=== PATIENT | male | born 1980 | race Caucasian/White ===

== ENCOUNTER 2022-07-23 17:33 | Observation (INO) | payer BC, OTHER ==
[~2022-07-23] VITALS: Ht 177.8 cm; Wt 66.5 kg
[~2022-07-23 17:33] MED LIST: CIPR-225 PO; KETO10TA PO; ONDA4TAB11 SL; ONDA4TAB8 PO; PROM25SU43 RC; TMSL.4C PO
[2022-07-23] MEDS ORDERED: fentaNYL INJ 100 MCG/2 ML AMP IVP STA (18:33)
[2022-07-23] MEDS ORDERED: KETOROLAC 30 MG/ML VIAL IVP STA (18:42)
[2022-07-23] MEDS ORDERED: NS IV 1000 ML 1,000 ML IV ONE (18:45)
--- NOTE | 2022-07-23 18:51 | ED EENT ---
History of Present Illness General Chief Complaint: Dental Problems/Pain Stated Complaint: WISDOM TEETH INFECTED Nursing Triage Note: PT AMB TO TRIAGE W C/O INFECTED WISOM TEETH X4 THAT HAS BEEN ONGOING FOR MONTHS, WORSE SX SUNDAY. PT HAD REFERRAL TO GET THEM REMOVED BUT THEY BECAME INFECTED, DELAYING THE PROCEDURE. PT HAS BEEN UNABLE TO GET INTO [facility]. PT A&OX4. Source: patient Exam Limitations: no limitations History of Present Illness Date Seen by Provider: Jul 23, 2022 Time Seen by Provider: 18:15 Initial Comments Here with problems with wisdom tooth x4 but has had significantly increased pain and swelling to the left lower wisdom tooth and now is unable to open his mouth due to pain. He had the same problem a few months ago and was on antibiotics. He was due to follow-up with dentist to have this pulled has had ongoing infection delaying the procedure. He follows with [facility]. He started taking some amoxicillin that his friends had a few days ago but the pain and swelling are worse. Denies nausea or vomiting but he is spitting out what looks to be purulent fluid. Denies breathing problems. He states he has not been able to eat or drink anything due to the pain. He does arrive tachycardic. Complains of fullness to the left upper neck area. Complains of difficulty with swallowing due to swelling.. He did take 8 baby aspirin and that did not help the pain. Timing/Duration: gradual, other (2 months but markedly worse over the last several days) Severity: moderate, severe Location: mouth, throat, facial, dental Prearrival Treatment: prescription meds Associated Symptoms: No cough, No drooling, No ear drainage; facial pain/swelling, poor fluid intake, poor solids intake, sore throat, tooth pain Allergies and Home Medications Allergies Coded Allergies: No Known Drug Allergies (Unverified , 12/06/15) Patient Home Medication List Home Medication List Reviewed: Yes Ondansetron (Ondansetron Odt) 4 Mg Tab.rapdis, 4 MG SL A PRN for NAUSEA/VOM ITING, (Reported) Entered as Reported by: LEI RUSSELL on 12/06/15 1802 Promethazine HCl (Phenergan) 25 Mg Supp.rect, 25 MG RC Q4H Prescribed by: MARIANO EMERSON on 12/07/15 0016 Review of Systems Review of Systems Constitutional: see HPI; No chills; fever Ears: Denies Pain, Denies Purulent Discharge Nose: denies pain, denies clear discharge Mouth: pain, swelling, purulent discharge Throat: pain, swelling Respiratory: No cough, No short of breath Cardiovascular: No edema, No palpitations Gastrointestinal: nausea; No vomiting Musculoskeletal: no symptoms reported Skin: no symptoms reported All Other Systems Reviewed Negative Unless Noted: Yes Past Unektwq-Lbxvwf-Zivmvk Hx Patient Social History Tobacco Use?: Yes Tobacco type used: Cigarettes Smoking Status: Current Everyday Smoker Use of E-Cig and/or Vaping dev: Yes E-Cig or Vaping type used: Nicotine Substance use?: Yes Substance type: Marijuana Alcohol Use?: No Immunizations Up To Date Influenza Vaccine Up-to-Date: No; Not Current First/Initial COVID19 Vaccinat: NONE Second COVID19 Vaccination Troy: NONE Third COVID19 Vaccination Date: NONE COVID19 Vaccine Digital Imaging Technician: NONE Past Medical History Surgeries: Yes Abdominal Respiratory: No Cardiac: No Neurological: No Reproductive Disorders: No Sexually Transmitted Disease: No Family Medical History Reviewed Nursing Family Hx No Pertinent Family Hx Physical Exam Vital Signs Vital Signs - First Documented 07/23/22 17:43 Temp 37.6 Pulse 140 Resp 20 B/P (MAP) 122/91 (101) Pulse Ox 97 O2 Delivery Room Air Height, Weight, BMI Height: 5'9" Weight: 146lbs. oz. [id number]; 21.00 BMI Method:Stated General Appearance: WD/WN, moderate distress Eyes: bilateral eye normal inspection, bilateral eye PERRL, bilateral eye EOMI Nose: normal inspection; No discharge Mouth/Throat: dental tenderness, mandibular swelling (Left-sided), trismus, other (Difficulty with opening mouth. Tongue depressor exam shows some purulence to the left lower with swelling and moderate tenderness. He is swollen at the left mandible externally with some fullness on the left submandibular with lymph nodes present.) Neck: supple; No lymphadenopathy (R); lymphadenopathy (L) Cardiovascular: no murmur, tachycardia Respiratory: lungs clear, normal breath sounds Gastrointestinal: non tender, soft Neurologic/Psychiatric: alert, oriented x 3 Skin: normal color, warm/dry Progress/Results/Core Measures Results/Orders Lab Results Laboratory Tests Test 07/23/22 19:15 Range/Units White Blood Count 16.2 H 4.3-11.0 10^3/uL Red Blood Count 4.42 4.30-5.52 10^6/uL Hemoglobin 14.4 13.3-17.7 g/dL Hematocrit 41 40-54 % Mean Corpuscular Volume 94 80-99 fL Mean Corpuscular Hemoglobin 33 25-34 pg Mean Corpuscular Hemoglobin Concent 35 32-36 g/dL Red Cell Distribution Width 11.8 10.0-14.5 % Platelet Count 409 H 130-400 10^3/uL Mean Platelet Volume 9.6 9.0-12.2 fL Immature Granulocyte % (Auto) 0 % Neutrophils (%) (Auto) 78 H 42-75 % Lymphocytes (%) (Auto) 12 12-44 % Monocytes (%) (Auto) 9 0-12 % Eosinophils (%) (Auto) 0 0-10 % Basophils (%) (Auto) 0 0-10 % Neutrophils # (Auto) 12.6 H 1.8-7.8 10^3/uL Lymphocytes # (Auto) 1.9 1.0-4.0 10^3/uL Monocytes # (Auto) 1.5 H 0.0-1.0 10^3/uL Eosinophils # (Auto) 0.0 0.0-0.3 10^3/uL Basophils # (Auto) 0.1 0.0-0.1 10^3/uL Immature Granulocyte # (Auto) 0.1 0.0-0.1 10^3/uL Neutrophils % (Manual) 78 % Lymphocytes % (Manual) 14 % Monocytes % (Manual) 7 % Metamyelocytes % 1 % Blood Morphology Comment NORMAL Sodium Level 135 135-145 MMOL/L Potassium Level 4.2 3.6-5.0 MMOL/L Chloride Level 97 L 98-107 MMOL/L Carbon Dioxide Level 19 L 21-32 MMOL/L Anion Gap 19 H 5-14 MMOL/L Blood Urea Nitrogen 11 7-18 MG/DL Creatinine 1.04 0.60-1.30 MG/DL Estimat Glomerular Filtration Rate 91 BUN/Creatinine Ratio 11 Glucose Level 96 70-105 MG/DL Lactic Acid Level 0.89 0.50-2.00 MMOL/L Calcium Level 10.4 H 8.5-10.1 MG/DL Corrected Calcium 8.5-10.1 MG/DL Total Bilirubin 0.5 0.1-1.0 MG/DL Aspartate Amino Transf (AST/SGOT) 15 5-34 U/L Alanine Aminotransferase (ALT/SGPT) 12 0-55 U/L Alkaline Phosphatase 102 40-136 U/L C-Reactive Protein High Sensitivity 18.24 H 0.00-0.50 MG/DL Total Protein 8.6 H 6.4-8.2 GM/DL Albumin 4.6 H 3.2-4.5 GM/DL My Orders Orders - FAROOQ CURTIS MD Cbc With Automated Diff (07/23/22 18:33) Comprehensive Metabolic Panel (07/23/22 18:33) Hs C Reactive Protein (07/23/22 18:33) Lactic Acid Analyzer (07/23/22 18:33) Blood Culture (07/23/22 18:33) Ed Iv/Invasive Line Start (07/23/22 18:33) Ns Iv 1000 Ml (Sodium Chloride 0.9%) (07/23/22 18:45) Fentanyl Inj (Sublimaze Injection) (07/23/22 18:33) Ketorolac Injection (Toradol Injection) (07/23/22 18:42) Ct Neck (Soft Tissue) W (07/23/22 18:43) Iohexol Injection (Omnipaque 350 Mg/Ml 1 (07/23/22 19:15) Received Contrast (Hold Metformin- Contr (07/23/22 19:15) Sodium Chloride Flush (Catheter Flush Sy (07/23/22 19:15) Manual Differential (07/23/22 19:15) Ampicillin/Sulbactam Injection (Unasyn 3 (07/23/22 20:45) Medications Given in ED Current Medications Medications Dose Ordered Sig/[place] Route Start Time Stop Time Status Last Admin Dose Admin Iohexol 100 ml ONCE ONCE IV 07/23/22 19:15 07/23/22 19:16 DC 07/23/22 19:03 75 ML Sodium Chloride 1,000 ml @ 0 mls/hr Q0M ONCE IV 07/23/22 18:45 07/23/22 18:46 DC 07/23/22 19:38 999 MLS/HR Vital Signs/I&O 07/23/22 17:43 Temp 37.6 Pulse 140 Resp 20 B/P (MAP) 122/91 (101) Pulse Ox 97 O2 Delivery Room Air Blood Pressure Mean: 101 Progress Progress Note : Progress Note Seen and evaluated. IV, labs, blood culture, normal saline 1 L bolus, fentanyl 75 mcg IV and Toradol 30 mg IV ordered. We will get CT soft tissue of the neck to rule out significant abscess involving the airway especially with his difficulty with mouth opening and report of difficulty with swallowing due to swelling. All of this was discussed with patient and family who agree. Monitor patient. 2034: CT does show small apical abscess. This is near the wisdom tooth but there is no airway compromise. Patient feels better after meds earlier. We will go ahead and initiate Unasyn 3 g IV now continue that every 6. I did discuss the case with Dr. Schwarz and he accepts patient for admission, observation status due to dehydration and difficulty with tolerating p.o. due to pain. We will continue Toradol and fentanyl if needed. This was discussed with patient and family who agree. Anticipation is he could follow-up outpatient with a dentist after infection is controlled better and he has better movement with his jaw. Patient and family agree with plan. Diagnostic Imaging Diagonstic Imaging: CT Plain Films/CT/US/NM/MRI: other Comments [facility]. [place], [place] NAME: CHARLENE KAY [facility] REC#: [id number] PT STATUS: REG ER : 1980 PHYSICIAN: FAROOQ CURTIS MD ADMIT DATE: 07/23/22/ER Draft Date of Exam:07/23/22 CT NECK (SOFT TISSUE) W PROCEDURE: CT neck soft tissue with contrast. TECHNIQUE: Multiple contiguous axial images were obtained through the neck after the administration of contrast. Auto Exposure Controls were utilized during the CT exam to meet ALARA standards for radiation dose reduction. INDICATION: Dental infection. FINDINGS: There is edema and inflammation in the left submandibular region with an approximately 1.8 x 1.2 cm irregular collection of fluid medial to the left mandibular ramus. There is periapical lucency involving the adjacent molar which does appear to extend through the medial mandibular cortex. There is no significant extension into the neck. Occasional probable reactive lymph nodes are seen along the left jugulodigastric chain measuring up to approximately 1.1 cm in size. No great vessel abnormality is identified. Parotid salivary glands and submandibular salivary glands are unremarkable although left submandibular salivary glands inseparable from the abscess. IMPRESSION: Left submandibular abscess adjacent to dental lesion without airway encroachment or other acute complication. Dictated on workstation # [id number] Dict: 07/23/221930 Trans: 07/23/221940 [id number] Interpreted by: ISABELLA HURTADO MD Electronically signed by: Departure Communication (Admissions) Time/Spoke to Admitting Phy: 20:35 Impression Primary Impression: Dental abscess Additional Impressions: Dehydration Mouth pain Disposition: ADMITTED INPATIENT Condition: Stable Admissions Decision to Admit Reason: Admit from ER (General) Decision to Admit/Date: Jul 23, 2022 Time/Decision to Admit Time: 20:35 Departure-Patient Inst. Referrals: [facility] (PCP/Family) Primary Care Physician FAROOQ CURTIS MD Jul 23, 2022 18:51
[2022-07-23] MEDS ORDERED: CATHETER FLUSH 10 ML SYR IV PRN (19:15)
[2022-07-23] MEDS ORDERED: IOHEXOL 350 MG/ML 100 ML (OMNIPAQUE 350) VIAL IV ONE (19:15)
[2022-07-23] MEDS ORDERED: HOLD METFORMIN - RECEIVED CONTRAST 20 ML VIAL IV SCH (19:15)
[2022-07-23 19:22] LABS: BASOPHILS # (AUTO) 0.1 10^3/uL (0.0-0.1); BASOPHILS % (AUTO) 0 % (0-10); EOSINOPHILS % (AUTO) 0 % (0-10); HEMATOCRIT 41 % (40-54); HEMOGLOBIN 14.4 g/dL (13.3-17.7); LYMPHOCYTES # (AUTO) 1.9 10^3/uL (1.0-4.0); LYMPHOCYTES % (AUTO) 12 % (12-44); MEAN CORPUSCULAR HEMOGLOBIN 33 pg (25-34); MEAN CORPUSCULAR HGB CONC 35 g/dL (32-36); MEAN CORPUSCULAR VOLUME 94 fL (80-99); MEAN PLATELET VOLUME 9.6 fL (9.0-12.2); MONOCYTES # (AUTO) 1.5 10^3/uL (0.0-1.0); MONOCYTES % (AUTO) 9 % (0-12); NEUTROPHILS # (AUTO) 12.6 10^3/uL (1.8-7.8); NEUTROPHILS % (AUTO) 78 % (42-75); PLATELET COUNT 409 10^3/uL (130-400); WHITE BLOOD COUNT 16.2 10^3/uL (4.3-11.0)
--- NOTE | 2022-07-23 19:42 | Diagnostic Imaging Report ---
PROCEDURE: CT neck soft tissue with contrast. TECHNIQUE: Multiple contiguous axial images were obtained through the neck after the administration of contrast. Auto Exposure Controls were utilized during the CT exam to meet ALARA standards for radiation dose reduction. INDICATION: Dental infection. FINDINGS: There is edema and inflammation in the left submandibular region with an approximately 1.8 x 1.2 cm irregular collection of fluid medial to the left mandibular ramus. There is periapical lucency involving the adjacent molar which does appear to extend through the medial mandibular cortex. There is no significant extension into the neck. Occasional probable reactive lymph nodes are seen along the left jugulodigastric chain measuring up to approximately 1.1 cm in size. No great vessel abnormality is identified. Parotid salivary glands and submandibular salivary glands are unremarkable although left submandibular salivary glands inseparable from the abscess. IMPRESSION: Left submandibular abscess adjacent to dental lesion without airway encroachment or other acute complication. Dictated by: Dictated on workstation # [id number]
[2022-07-23 19:47] LABS: NEUTROPHILS % (MANUAL) 78 %
[2022-07-23 19:48] LABS: LYMPHOCYTES % (MANUAL) 14 %; METAMYELOCYTES % 1 %; MONOCYTES % (MANUAL) 7 %
[2022-07-23 19:49] LABS: RBC MORPH NORMAL
[2022-07-23 19:51] LABS: ALANINE AMINOTRANSFERASE 12 U/L (0-55); ALBUMIN 4.6 GM/DL (3.2-4.5); ALKALINE PHOSPHATASE 102 U/L (40-136); BILIRUBIN,TOTAL 0.5 MG/DL (0.1-1.0); BUN/CREATININE RATIO 11; CALCIUM 10.4 MG/DL (8.5-10.1); CARBON DIOXIDE 19 MMOL/L (21-32); CHLORIDE 97 MMOL/L (98-107); CREATININE SERUM 1.04 MG/DL (0.60-1.30); GFR ESTIMATED 91; GLUCOSE 96 MG/DL (70-105); POTASSIUM 4.2 MMOL/L (3.6-5.0); SODIUM 135 MMOL/L (135-145); TOTAL PROTEIN 8.6 GM/DL (6.4-8.2)
[2022-07-23] MEDS ORDERED: cefTRIAXone 1 GM PRE-MIX 50 ML IV STA (20:33)
[2022-07-23] MEDS ORDERED: AMPICILLIN/SULBACTAM INJECTION 3 GM in NS (IVPB) 100 ML IV ONE (20:45)
[2022-07-23 21:30] VITALS: BP 132/76
[2022-07-23] MEDS ORDERED: LACTATED RINGERS 1,000 ML IV ONE (21:33)
[2022-07-23] MEDS: LACTATED RINGERS 1,000 ML IV SCH (21:35)
[2022-07-23] MEDS ORDERED: ONDANSETRON 4 MG/2 ML (SDV) Z0FRAN IV PRN (22:15)
[2022-07-23] MEDS ORDERED: fentaNYL INJ 100 MCG/2 ML AMP IV PRN (22:15)
[2022-07-23] MEDS ORDERED: AMPICILLIN/SULBACTAM 3 GM/NS 100 ML IVPB IV SCH ×2 (22:30)
[2022-07-23 23:48] VITALS: BP 115/69
[2022-07-24] MEDS: AMPICILLIN/SULBACTAM 3 GM/NS 100 ML IVPB IV SCH ×8 (03:13→21:10)
[2022-07-24 03:14] VITALS: BP 105/57
[2022-07-24] MEDS: LACTATED RINGERS 1,000 ML IV SCH ×3 (05:29→23:40)
[2022-07-24 05:31] LABS: BASOPHILS # (AUTO) 0.1 10^3/uL (0.0-0.1); BASOPHILS % (AUTO) 1 % (0-10); EOSINOPHILS # (AUTO) 0.1 10^3/uL (0.0-0.3); EOSINOPHILS % (AUTO) 2 % (0-10); HEMATOCRIT 35 % (40-54); LYMPHOCYTES # (AUTO) 2.1 10^3/uL (1.0-4.0); LYMPHOCYTES % (AUTO) 28 % (12-44); MEAN CORPUSCULAR HEMOGLOBIN 33 pg (25-34); MEAN CORPUSCULAR HGB CONC 34 g/dL (32-36); MEAN CORPUSCULAR VOLUME 95 fL (80-99); MEAN PLATELET VOLUME 9.5 fL (9.0-12.2); MONOCYTES # (AUTO) 0.9 10^3/uL (0.0-1.0); MONOCYTES % (AUTO) 12 % (0-12); NEUTROPHILS # (AUTO) 4.2 10^3/uL (1.8-7.8); NEUTROPHILS % (AUTO) 57 % (42-75); PLATELET COUNT 332 10^3/uL (130-400); WHITE BLOOD COUNT 7.4 10^3/uL (4.3-11.0)
[2022-07-24 05:47] LABS: CALCIUM 9.4 MG/DL (8.5-10.1); CREATININE SERUM 0.81 MG/DL (0.60-1.30); POTASSIUM 4.3 MMOL/L (3.6-5.0)
[2022-07-24 07:12] VITALS: BP 109/73
[2022-07-24] MEDS: KETOROLAC 30 MG/ML VIAL IV PRN ×3 (08:13→23:40)
[2022-07-24 11:25] VITALS: BP 111/69
--- NOTE | 2022-07-24 14:57 | History & Physical ---
SOLO RHODES 07/24/22 1457: HPI History of Present Illness: Farhat Guan is a 42 yo male who was admitted to inpatient care on 07/23/2022 for dental abscess. The patient reports he has experienced around 4 months of left lower jaw pain. He was seen by dentistry and diagnosed with left lower wisdom tooth cavity with submandibular abscess, prescribed antibiotics and referred to oral surgery at the time. The patient states his symptoms improved with oral antibiotics, but he had recurrence of the pain and swelling just prior to his oral surgery consult, and when he called them with these symptoms, he was informed he could not have surgery performed with an active infection. Patient did not have his appointment rescheduled, and he did not start antibiotics or any other treatment for his abscess at the time. He presented the ED for months of worsening pain to his left lower jaw, decreased jaw mobility, and difficulty eating and drinking secondary to his pain. The patient was started on Unasyn, fluids, and analgesics prior to admission. Today, the patient states his symptoms have largely improved compared to yesterday. He indicates his pain was an 8.5/10 on initial presentation and is a 6/10 now; he remarks he is able to open his mouth wider than previously and has been able to drink a Sprite this morning. He notes his difficulty opening his jaw is because it feels "locked" in place, and not necessarily secondary to his left jaw pain. Patient had CBC drawn at 1915 yesterday, notable for elevated WBC, PLT, Neutrophil%, Neutrophil Count, Monocyte Count at 16.2 (H), 409 (H), 78 (H), 12.6 (H), 1.5 (H), respectively, improved to 7.4, 320, 57, 4.2, 0.9 on redraw at 0519 this morning; he had RBC, HGB, HCT within normal limits yesterday but these are all low at 3.67, 12.0, and 35 today. CMP revealed Chloride 97 (L), CO2 19 (L), Anion Gap 19 (H), Calcium 10.4 (H) yesterday, all improved with levels of 103, 23, 15 (H), 9.4 at 0519 this morning. Patient did not have temperature at or above 38 C through the night. He had one episode of tachycardia recorded at 140 at 2131. His VS have otherwise been WNL. Source: patient, old records Date seen by provider: Jul 24, 2022 Time Seen by Provider: 08:45 Attending Physician [place] PCP Admitting Physician: Delio Schwarz MD Attending Physician: Marv Jones MD Consult Date of Admission Jul 23, 2022 at 20:35 Home Medications Home Medications Reviewed patient Home Medication Reconciliation performed by pharmacy medication reconciliations oil field technician and/or nursing. Patients Allergies have been reviewed. Allergies Coded Allergies: No Known Drug Allergies (Unverified , 12/06/15) DLJ-Rrftvi-Awepmn Hx Patient Social History Smoking Status: Current Everyday Smoker Alcohol Use?: No Substance type: Marijuana Tobacco type used: Cigarettes Have you traveled recently?: No Immunizations Up To Date Influenza Vaccine Up-to-Date: No; Not Current First/Initial COVID19 Vaccinat: NONE Second COVID19 Vaccination Troy: NONE Third COVID19 Vaccination Date: NONE COVID19 Vaccine Analyst Market Intelligence: NONE Family Medical History Significant Family History: No Pertinent Family Hx Review of Systems ([facility]) Constitutional: No chills, No fever EENTM: dental problems, mouth swelling, other (difficulty opening his mouth) Respiratory: no symptoms reported; No short of breath Cardiovascular: no symptoms reported; No chest pain Gastrointestinal: no symptoms reported; No abdominal pain Reviewed Test Results Reviewed Test Results Lab Laboratory Tests 07/23/22 19:15: White Blood Count 16.2H, Platelet Count 409H, Neutrophils (%) (Auto) 78H, Neutrophils # (Auto) 12.6H, Monocytes # (Auto) 1.5H, Chloride Level 97L, Carbon Dioxide Level 19L, Anion Gap 19H, Calcium Level 10.4H, C-Reactive Protein High Sensitivity 18.24H, Total Protein 8.6H, Albumin 4.6H 07/24/22 05:19: Anion Gap 15H, Red Blood Count 3.67L, Hemoglobin 12.0L, Hematocrit 35L Radiology Left submandibular abscess adjacent to dental lesion without airway encroachment or other acute complication. Physical Exam-([facility]) Physical Exam Vital Signs VS - Last 72 Hours, by Label 07/23/22 07/23/22 07/23/22 07/23/22 17:43 21:30 21:30 21:31 Temp 37.6 36.4 37.6 Pulse 140 89 140 Resp 20 18 20 B/P (MAP) 122/91 (101) 132/76 (94) 122/91 Pulse Ox 97 97 97 O2 Delivery Room Air Room Air Room Air Room Air 07/23/22 07/24/22 07/24/22 07/24/22 23:48 03:14 07:12 11:25 Temp 37.1 36.7 36.3 36.4 Pulse 77 72 72 68 Resp 16 16 18 18 B/P (MAP) 115/69 (84) 105/57 (73) 109/73 (85) 111/69 (83) Pulse Ox 99 98 96 99 O2 Delivery Room Air Room Air Room Air Room Air Capillary Refill : Less Than 3 Seconds General Appearance: no apparent distress HEENT: other (Patient only able to open his mouth 1.5-2cm, difficulty visualizing the oral cavity. Dental cavity and tooth decay notable to the left lower wisdom tooth. No surrounding erythema or swelling.) Neck: lymphadenopathy (L) (mild left lymphadenopathy), other (tenderness to palpation of the left mandibular process and the neck just inferior to it. Notable soft tissue swelling to the area inferior to the left mandibular process.) Respiratory: lungs clear, normal breath sounds, no respiratory distress Cardiovascular: normal peripheral pulses, regular rate, rhythm, no edema Peripheral Pulses: 2+ Dorsalis Pedis (R), 2+ Left Dors-Pedis (L), 2+ Radial Pulses (R), 2+ Radial Pulses (L) Assessment/Plan Assessment/Plan Admission Status: Inpatient Order (span 2 midnights) Reason for Inpatient Admission: Submandibular abscess (1) Dental abscess Status: Acute Assessment & Plan: Continue Unasyn infusion, pain management with analgesics as needed, fluid infusion. Consult with oral surgery tomorrow morning. Plan to discharge with their agreement and if patient is able to tolerate fluids, food, and medications PO. (2) Mouth pain Status: Acute Assessment & Plan: Continue Unasyn infusion, pain management with analgesics as needed, fluid infusion. Consult with oral surgery tomorrow morning. Plan to discharge with their agreement and if patient is able to tolerate fluids, food, and medications PO. MARV JONES MD 07/24/22 1533: Home Medications Allergies Coded Allergies: No Known Drug Allergies (Unverified , 12/06/15) Supervisory-Addendum Brief Verification & Attestation Participated in pt care: history, MDM, physical Personally performed: exam, history, MDM, supervision of care Care discussed with: Medical Student Procedures: n/a I personally saw and examined patient and repeated the history to confirm that documented by the medical student. I directed the plan of care as documented. SOLO RHODES Jul 24, 2022 14:57 MARV JONES MD Jul 24, 2022 15:33
[2022-07-24 15:28] VITALS: BP 113/74
[2022-07-24 19:26] VITALS: BP 109/76
[2022-07-24 23:54] VITALS: BP 110/60
[2022-07-25] MEDS: AMPICILLIN/SULBACTAM 3 GM/NS 100 ML IVPB IV SCH ×4 (03:13→08:23)
[2022-07-25 03:53] VITALS: BP 114/71
[2022-07-25] MEDS: LACTATED RINGERS 1,000 ML IV SCH (06:56)
[2022-07-25 07:28] VITALS: BP 125/79
[2022-07-25] MEDS ORDERED: AMOX1TAB12 PO (09:19)
--- NOTE | 2022-07-25 09:21 | Discharge Summary ---
Discharge Summary Hospital Course Problems/Diagnosis: (1) Dental abscess Status: Acute Assessment & Plan: Continue Unasyn infusion, pain management with analgesics as needed, fluid infusion. Consult with oral surgery tomorrow morning. Plan to discharge with their agreement and if patient is able to tolerate fluids, food, and medications PO. (2) Mouth pain Status: Acute Assessment & Plan: Continue Unasyn infusion, pain management with analgesics as needed, fluid infusion. Consult with oral surgery tomorrow morning. Plan to discharge with their agreement and if patient is able to tolerate fluids, food, and medications PO. Hospital Course Date of Admission: Jul 23, 2022 at 20:35 Admission Diagnosis : Family Physician/Provider: [place] [place] Date of Discharge: 07/25/22 Discharge Diagnosis: [ ] Hospital Course: [ ] Labs and Pending Lab Test: Microbiology 07/23/22 Blood Culture - Preliminary, Resulted No growth Home Meds Active Amox Tr-K Clv 875-125 mg Tab (Amoxicillin/Potassium Clav) 875 Mg-125 Mg Tablet 1 Each PO BID Discharge Physical Examination Allergies: Coded Allergies: No Known Drug Allergies (Unverified , 12/06/15) MARV JONES MD Jul 25, 2022 09:21
[2022-07-25 09:35] VITALS: BP 125/79
--- NOTE | 2022-07-25 10:44 | Discharge Summary ---
SOLO RHODES 07/25/22 1024: Discharge Summary Hospital Course Problems Reviewed?: Yes Problems/Diagnosis: (1) Dental abscess Status: Acute Assessment & Plan: Follow up with oral surgery for abscess drainage. (2) Mouth pain Status: Acute Assessment & Plan: Follow up with oral surgery for abscess drainage. Hospital Course Date of Admission: Jul 23, 2022 at 20:35 Admission Diagnosis : Family Physician/Provider: [facility] Date of Discharge: 07/25/22 Discharge Diagnosis: Left Submandibular Abscess Hospital Course: Farhat Guan is a 42 yo male who presented to the ED for 3 months of gradually worsening left jaw and upper neck pain. The patient was initially seen by dentistry 4 months ago with similar symptoms secondary to a left lower wisdom tooth cavity; he was prescribed antibiotics that significantly improved his symptoms and was referred to oral surgery for left lower wisdom tooth removal. However, in the days prior to his oral surgery consultation, he developed recurrence of the pain and swelling to his left jaw. Upon calling oral surgery, they indicated he would not be able to have a surgery performed with an active infection. The patient did not follow up with any medical provider after this phone call and did not receive any antibiotic treatment. He had persistently worsening symptoms until his presentation here. CT in the emergency department revealed left submandibular abscess without airway obstruction. The patient was started on Unasyn IV, NS, and analgesics here with marked improvement to his symptoms. His pain on arrival was 8.5/10 and improved to 3/10 on discharge, and his ability to open his jaw has improved each day. The patient is able to tolerate food and fluid PO at time of discharge and has no further complaints. Patient had max temperature of 37.6 C here, and VS overall are stable. Labwork was significant for elevated WBC that improved with Unasyn and saline. Patient also had low chloride and CO2, as well as elevated anion gap and calcium, on admission, which improved by the end of his stay. Patient was seen by oral surgery, Dr. Artis, on 07/25/22, who recommends discharge home with no restrictions and with plan to schedule surgical drainage of the left submandibular abscess later this week. Labs and Pending Lab Test: Laboratory Tests 07/23/22 19:15: White Blood Count 16.2H, Platelet Count 409H, Neutrophils (%) (Auto) 78H, Neutrophils # (Auto) 12.6H, Monocytes # (Auto) 1.5H, Chloride Level 97L, Carbon Dioxide Level 19L, Anion Gap 19H, Calcium Level 10.4H, C-Reactive Protein High Sensitivity 18.24H, Total Protein 8.6H, Albumin 4.6H 07/24/22 05:19: Anion Gap 15H, Red Blood Count 3.67L, Hemoglobin 12.0L, Hematocrit 35L Microbiology 07/23/22 Blood Culture - Preliminary, Resulted No growth Home Meds Active Amox Tr-K Clv 875-125 mg Tab (Amoxicillin/Potassium Clav) 875 Mg-125 Mg Tablet 1 Each PO BID Discharge Diet: No Restrictions Activity as Tolerated: Yes Consulations Consultations Oral surgery, Dr. Kris Artis. Will schedule appointment with patient for abscess drainage later this week. Discharge Physical Examination Allergies: Coded Allergies: No Known Drug Allergies (Unverified , 12/06/15) General Appearance: No Apparent Distress HEENT: Moist Mucous Membranes, Other (Unable to open mouth past 3cm. Visible tooth cavity in left lower wisdom tooth. Unable to visualize posterior oropharynx secondary to limited jaw movement.) Respiratory: Lungs Clear, Normal Breath Sounds; No Crackles, No Rales, No Rhonci, No Wheezing Cardiovascular: Regular Rate, Rhythm, No Edema, No Murmur Extremity: Normal Capillary Refill Discharge Summary Date of Admission Jul 23, 2022 at 20:35 Date of Discharge Jul 25, 2022 at 09:40 Discharge Date: Jul 25, 2022 Discharge Time: 09:00 Admission Diagnosis Left submandibular abscess Consults/Procedures Consulations Oral surgery, Dr. Kris Artis Discharge Diagnosis Left submandibular abscess (1) Dental abscess Status: Acute Assessment & Plan: Follow up with Dr. Artis for surgical drainage of submandibular abscess. Take Augmentin 875-125 mg BID. (2) Mouth pain Status: Acute Assessment & Plan: Follow up with Dr. Artis for surgical drainage of submandibular abscess. Take Augmentin 875-125 mg BID. Supervisory-Addendum Brief Verification & Attestation Participated in pt care: history, MDM, physical Personally performed: exam, history, MDM Care discussed with: Medical Student LEONORA JONES MD 07/27/22 1720: Discharge Summary Hospital Course Assessment/Pt DC Instructions Follow up with Dr. Artis outpatient this week as directed. Discharge Physical Examination Allergies: Coded Allergies: No Known Drug Allergies (Unverified , 12/06/15) Supervisory-Addendum Brief Verification & Attestation Participated in pt care: history, MDM, physical Personally performed: exam, history, MDM, supervision of care Care discussed with: Medical Student Procedures: n/a Verification and Attestation of Medical Student E/M Service A medical student performed and documented this service in my presence. I reviewed and verified all information documented by the medical student and made modifications to such information, when appropriate. I personally performed the physical exam and medical decision making. Leonora Jones, Jul 27, 2022,17:20 SOLO RHODES Jul 25, 2022 10:24 LEONORA JONES MD Jul 27, 2022 17:20
== END 2022-07-25 09:18 | disposition home or self-care (01) ==
LOC: EDUNIT# 17:33 → ER 17:36 → UNDOADMOB 20:35 → 4TH 20:35 → UNDODISOB 07-25 09:18
PROVIDERS: ADMIT Internal Medicine; ATTEND Family Medicine
DX: K12.2 Cellulitis and abscess of mouth (principal); K04.7 Periapical abscess without sinus; F17.210 Nicotine dependence, cigarettes, uncomplicated; Z28.310 Unvaccinated for COVID-19
CPT/HCPCS: 70491; 80048; 80053; 83605; 85007; 85025; 85027; 86141; 87040; 96361 ×2; 96366; 96376 ×2; 99284; G0378; 36415